=== PATIENT | female | born 1945 | race Caucasian/White ===

== ENCOUNTER 2020-10-19 21:29 | Inpatient (IN) | payer OTHER, MEDICAID, SELFPAY ==
[~2020-10-19] VITALS: Ht 157.5 cm; Wt 66.3 kg
[~2020-10-19 21:29] MED LIST: DITXL5 PO; DOXY100C PO; ESCI10TA PO; GABA-529 PO; LEVO150T8 PO; MELA5TAB12 PO; METO25TA6 PO; PERC10 GT; PRED2.5T4 PO; PRO40 PO; SIMV-43 PO
[2020-10-19 21:36] VITALS: BP_SYST 118
--- NOTE | 2020-10-19 21:36 | NUR ---
Patient to ER bed 7 to gown for evaluation. Side rails up. Report given to MINOR MAC.
--- NOTE | 2020-10-19 21:42 | NUR ---
Patient's code status is FULL CODE paperwork completed and placed in chart.
--- NOTE | 2020-10-19 22:03 | NUR ---
ER Dr. FARIA at bedside examining patient.
[2020-10-19 22:05] LABS: HEMATOCRIT 34.6 % (36-48); HEMOGLOBIN 10.9 g/dL (12.0-16.0); MEAN CORPUSCULAR HEMOGLOBIN 23 pg (27-31); MEAN CORPUSCULAR HGB CONC 31 % (32-36); MEAN CORPUSCULAR VOLUME 72 fL (79.0-98.0); PLATELET COUNT (AUTO) 354 K/uL (130-430); RED BLOOD CELL COUNT(AUTO) 4.82 MIL/uL (4.2-6.2); RED CELL DISTRIBUTION WIDTH 18.2 % (9.0-15.0)
[2020-10-19] MEDS ORDERED: SIME80TA15 PO (22:09)
[2020-10-19] MEDS ORDERED: FEXO180T94 PO (22:09)
[2020-10-19] MEDS ORDERED: MULT-1117 PO (22:09)
[2020-10-19] MEDS ORDERED: SULF1TAB48 PO (22:09)
[2020-10-19] MEDS ORDERED: HYDR-3917 PO (22:09)
[2020-10-19] MEDS ORDERED: FOLI-43 PO (22:09)
[2020-10-19] MEDS ORDERED: POLY17PO4 PO (22:09)
[2020-10-19] MEDS ORDERED: DIF100 PO (22:09)
[2020-10-19] MEDS ORDERED: ONDA4TAB5 PO (22:09)
[2020-10-19] MEDS ORDERED: METH-634 PO (22:09)
[2020-10-19] MEDS ORDERED: MOM PO (22:09)
[2020-10-19] MEDS ORDERED: LOPE2CAP PO (22:09)
[2020-10-19] MEDS ORDERED: BEN50 PO (22:09)
[2020-10-19] MEDS ORDERED: ERGO400T7 PO (22:09)
[2020-10-19] MEDS ORDERED: CALCIUM CARBONATE PO (22:09)
[2020-10-19] MEDS ORDERED: ACET325T PO (22:09)
[2020-10-19] MEDS ORDERED: LOM2.5 PO (22:09)
[2020-10-19] MEDS ORDERED: LEVO125T PO (22:09)
[2020-10-19] MEDS ORDERED: ASCO500T20 PO (22:09)
[2020-10-19] MEDS ORDERED: DITXL5 PO (22:09)
[2020-10-19] MEDS ORDERED: DULCOLAX RC (22:09)
--- NOTE | 2020-10-19 22:09 | NUR ---
Medication reconciliation completed with information provided by [facility]. Any prior medication reconciliation on file was reviewed and corrected.
[2020-10-19 22:10] LABS: WHITE BLOOD COUNT (AUTO) 54.4 K/uL (4.8-10.8)
--- NOTE | 2020-10-19 22:10 | NUR ---
PT BIBA FROM [facility] TO ED C/O ABDOMINAL PAIN, NAUSEA, VOMITING, GENERALIZED WEAKNESS NO OTHER COMPLAINTS NOTED VSS NO S/S OF ACUTE DISTRESS RESTING ON GURNEY RAILS UP
--- NOTE | 2020-10-19 22:15 | NUR ---
# 16 FR Gutierrez catheter with use of sterile technique. Immediate return of 200 cc DARK YELLOW urine noted. Bedside drainage bag placed below level of bladder. Urine sample collected and sent to lab. Pt tolerated procedure WELL. Patient unable to toilet self.
[2020-10-19 22:27] LABS: INR 1.2 (0.8-1.2); PROTHROMBIN TIME 12.3 SECS (9.5-12.5)
[2020-10-19] MEDS ORDERED: CLINDAMYCIN 900 MG in D5W 100 ML IV ONE (22:30)
[2020-10-19] MEDS ORDERED: NACL 0.9% 1,000 ML IV ONE (22:30)
[2020-10-19 22:40] LABS: BAND % (MANUAL) 13 % (0-6); BASOPHILS % (MANUAL) 0 % (0-2); EOSINOPHILS % (MANUAL) 0 % (0-7); LYMPHOCYTES % (MANUAL) 4 % (20-46); MONOCYTES % (MANUAL) 5 % (0-11)
[2020-10-19 22:41] LABS: BILIRUBIN,URINE 1+ (NEGATIVE); BLOOD, URINE 2+ (NEGATIVE); CLARITY/URINE SL CLOUDY (CLEAR); COLOR,URINE YELLOW (YELLOW); GLUCOSE,URINE NEGATIVE (NEGATIVE); KETONES,URINE TRACE (NEGATIVE); LEUKOCYTE ESTERASE ,URINE 2+ (NEGATIVE); NITRITE, URINE NEGATIVE (NEGATIVE); PROTEIN URINE 1+ (NEGATIVE)
[2020-10-19 22:57] LABS: ALANINE AMINOTRANSFERASE 10 U/L (12-78); ALBUMIN 2.3 g/dL (3.4-4.8); ASPARTATE AMINOTRANSFERASE 25 U/L (10-37); CALCIUM 7.2 mg/dL (8.4-11.0); CHLORIDE 98 mmol/L (98-107); GLUCOSE 129 mg/dL (70-99); POTASSIUM 3.8 mmol/L (3.5-5.1); SODIUM SERUM 131 mmol/L (136-145); TOTAL BILIRUBIN 0.4 mg/dL (0.0-1.0); UREA NITROGEN, BLOOD 14 mg/dL (8-21)
[2020-10-19] MEDS ORDERED: CLINDAMYCIN 900 mg/50mL D5W 50 ML IV ONE (23:01)
[2020-10-19 23:10] LABS: ANION GAP 13 (5-15)
[2020-10-19 23:27] LABS: BACTERIA,URINE MANY /HPF (None Seen); FINE GRANULAR CASTS,URINE 0-10 /LPF (None Seen); WBC,URINE 50-80 /HPF (0-3)
[2020-10-19 23:28] LABS: MUCUS,URINE 2+ /LPF (None Seen)
--- NOTE | 2020-10-19 23:35 | NUR ---
Pt to and back from CT Scan, well tolerated, in stable condition
[2020-10-20] VITALS (19 sets, daily range): BP systolic 73–133
--- NOTE | 2020-10-20 00:38 | NUR ---
IVF and IV Antibiotics well tolerated with MAP remaining 65 or higher
--- NOTE | 2020-10-20 01:44 | NUR ---
Provided complete linen change with perineal care, well tolerated
--- NOTE | 2020-10-20 01:55 | NUR ---
Dr. Ann paged to call back Dr. Shetty to discuss possible adm
--- NOTE | 2020-10-20 03:00 | NUR ---
IVF therapy effective AEB B/P holding with MAP at or above 65
--- NOTE | 2020-10-20 03:40 | NUR ---
Received adm orders from Dr. Ann for Tele adm
[2020-10-20] MEDS ORDERED: MORPHINE 2 MG/ML INJ. SYRINGE IVP PRN (03:45)
[2020-10-20] MEDS ORDERED: D5/0.45 NS 1,000 ML IV ONE (03:45)
--- NOTE | 2020-10-20 04:05 | NUR ---
ADMISSION NOTES PATIENT RECEIVED FROM ER FOR SEVERE SEPSIS. PATIENT ORIENTED TO ROOM, CALL LIGHT SYSTEM, BED AND TV REMOTE. BED IN LOWEST LOCKED POSITION. ADMISSION PROCESS INITIATED.
--- NOTE | 2020-10-20 04:20 | NUR ---
Patient will be admitted to care of Dr. Ann. Admitted to Tele unit. Will go to room 103A. Belongings list completed. Complete and up to date summary report printed. SBAR report to be given at bedside with opportunity for questions.
--- NOTE | 2020-10-20 04:20 | NUR ---
Transfer to Tele via ACLS protocol. Licensed nurse present. IV present no signs or symptoms of infiltration.
--- NOTE | 2020-10-20 05:23 | NUR ---
CONSULT REASON FOR CONSULT: ID PERSON I SPOKE WITH: [facility] CONSULTING PHYSICIAN: DR. STOVER [employer] OPERATOR PHONE NUMBER: [phone] ORDERING PHYSICIAN: DR. LINDER
[2020-10-20] MEDS ORDERED: CLINDAMYCIN 900 mg/50mL D5W 50 ML IV SCH (06:00)
[2020-10-20] MEDS ORDERED: CLINDAMYCIN 900 mg/50mL D5W 50 ML IV ONE (06:00)
--- NOTE | 2020-10-20 06:36 | NUR ---
BLOOD SUGAR DR. MYLES NOTIFIED OF PATIENT LOW BLOOD SUGAR RESULTS. NEW ORDER FOR IVF GIVEN NOTED AND CARRIED OUT. Addendum: 10/20/20 at 0637 by Radha Muñiz RN WRONG ENTRY/WRONG PT
--- NOTE | 2020-10-20 06:47 | NUR ---
Nutrition Update Go Scale 14 noted. Pt admitted for Severe Sepsis Diet: Regular BMI: 26.7 kg/m2 RD to follow per nutrition care standards.
--- NOTE | 2020-10-20 07:10 | NUR ---
Received patient complaining of nausea , abdominal discomfort, with low BP, Dr. Ann informed.
[2020-10-20] MEDS: ONDANSETRON HCL 4 MG/2 ML VIAL IVP PRN ×3 (07:11→23:23)
[2020-10-20] MEDS ORDERED: ONDANSETRON HCL 4 MG/2 ML VIAL ONE ×2 (07:12→23:23)
[2020-10-20] MEDS ORDERED: NACL 0.9% 1,000 ML IV ONE (07:15)
--- NOTE | 2020-10-20 07:15 | NUR ---
Zofran given IV push , n/s BOLUS started.
--- NOTE | 2020-10-20 07:50 | NUR ---
Daughter Monika informed regarding patient progress severe sepsis , hypotension , transfer to ICU
--- NOTE | 2020-10-20 10:44 | NUR ---
MD hammond Spoke to Sridevi with exchange to page Dr. Ann regarding HR and BP.
[2020-10-20] MEDS ORDERED: PHENYLEPHRINE HCL 50 MG in NS 245 ML IV PRN (12:30)
[2020-10-20] MEDS: CLINDAMYCIN 900 mg/50mL D5W 50 ML IV SCH ×2 (14:04→22:00)
--- NOTE | 2020-10-20 15:05 | NUR ---
WOUND EVALUATION: Wound Consult received from Dr. Ann. Thank you, Dr. Ann, for the consult. Patient received in a Speed Bed with a mattress, awake, alert, confused. Patient is unable to turn in bed independently. Go Score is a 14. Past Medical History: Gastroesophageal Reflux Disease, Hypertension, Renal Disease, Thyroid Disease, Osteomyelitis Left Hip, Rheumatoid Arthritis, SLE, Neuropathy, Hyperlipidemia, Major Depressive Disorder, Myocardial Infarction, Coronary Bypass Surgery, Cardiac Valve. Recent Labs: WBC 54.4, RBC 4.82, hemoglobin 10.9, hematocrit 34.6, sodium 131, BUN 14, creatinine 0.90, glucose 129, POC glucose 144, lactic acid 2.1, calcium 7.2, ALT 10, albumin 2.3. Microbiology: Blood culture results x2 in progress. MRSA screen results in progress. Urine culture results in progress. Intrinsic factors that delay wound healing: Renal Disease, Neuropathy, Osteomyelitis. Extrinsic factors that delay wound healing: Decreased mobility. Wound Assessment: 1. Left Lateral Hip: Chronic surgical incision that is dehisced. Wound bed has 100% red tissue. No odor, scant sanguineous drainage. Periwound intact. Wound measures 0.3 cm x 0.4 cm x 0.2 cm. Recommend: Cleanse wound with normal saline. Apply SurePrep to ajyant-wound. Apply Hydrogel to wound bed. Cover with foam dressing. Perform wound care daily, and as needed for dressing soiling or dislodgement. 2. Left Lateral Hip, inferior to site 1: Chronic surgical incision that is dehisced. Wound bed has 100% dark red tissue. No odor, scant sanguineous drainage. Periwound intact. Wound measures 1.1 cm x 0.7 cm x 0.7 cm. Recommend: Cleanse wound with normal saline. Apply SurePrep to jayant-wound. Apply Hydrogel to wound bed. Loosely pack wound with 1/4 inch iodoform packing strip. Cover with same foam dressing as in Site 1. Perform wound care daily, and as needed for dressing soiling or dislodgement. 3. Left Lateral Hip, inferior to site 2: Chronic surgical incision that is dehisced. Wound bed has 100% yellow tissue. No odor, no drainage. Periwound intact. Wound measures 2.0 cm x 0.4 cm x 0.2 cm. Recommend: Cleanse wound with normal saline. Apply SurePrep to jayant-wound. Apply Hydrogel to wound bed. Cover with same foam dressing as in Site 1. Perform wound care daily, and as needed for dressing soiling or dislodgement. Also recommend: Encourage and assist patient as needed with repositioning every 2 hours with pillow support and off-load pressure areas with pillows for pressure re-distribution. Offload, elevate and float bilateral heels with pillows. Perform skin care and monitor skin integrity Q shift. Use moisture barrier cream on buttocks and other moisture susceptible areas QID and as needed for soiling. Initiate low air-loss therapy. Addendum: 10/21/20 at 0724 by Flaquito Tatum RN Error: Site two should have plain packing strip soaked in saline.
[2020-10-20] MEDS: MORPHINE 2 MG/ML INJ. SYRINGE IVP PRN (17:11)
--- NOTE | 2020-10-20 19:25 | NUR ---
OPENING NOTE Received SBAR report from off coming RN for continuity of care. Pt laying in bed with eyes closed and on RA. Pt tachypnic and tachycardic, HR 150s. Neosynephrine gtt infusing @ 2.1 mcg/kg/min. Call light within reach, bed locked and in lowest position, safety precautions in place.
--- NOTE | 2020-10-20 20:30 | NUR ---
Pt laying in bed with eyes closed. Pt opens eyes at times but does not verbally respond. Pt withdraws to tactile stimuli. Pt on RA with oxygen saturations maintained above 90%. Pt is tachypneic with RR 20's-30's. Pt tachycardic with HR in 140's-150's. Pt afebrile. Neosynephrine gtt infusing @ 2.22 mcg/kg/min. Gutierrez catheter in place, no urine output noted. Bed locked and in lowest position, safety precautions in place.
[2020-10-20] MEDS: NOREPINEPHRINE BITARTRATE 4 MG in NS 246 ML IV PRN ×2 (21:00→22:30)
--- NOTE | 2020-10-20 21:00 | NUR ---
Levophed gtt initiated @ 0.1 mcg/kg/min per protocol d/t low BPs.
--- NOTE | 2020-10-20 22:28 | NUR ---
Pt continues to be tachycardic with HR 140's-150's, Sinus tachy. Dr. Neves will be paged to inform of HR.
--- NOTE | 2020-10-20 22:31 | NUR ---
PAGED FOR ORDERS DIALED: [phone] SPOKE TO: GILBERTO
--- NOTE | 2020-10-20 22:35 | NUR ---
Dr. Ann called to inform of pt's condition. made aware of tachycardia and need for central line d/t limited PIV access. New orders received.
--- NOTE | 2020-10-20 22:41 | NUR ---
Called daughter Monika for update on pt's condition. Obtained telephone consent for central line placement. Mimi Frank agreed.
--- NOTE | 2020-10-20 23:05 | NUR ---
Dr. Shetty at bedside to insert central line. Time out performed.
[2020-10-20] MEDS ORDERED: fentaNYL CITRATE/PF 100 MCG/2 ML AMP ONE (23:23)
[2020-10-21] VITALS: BP_SYST 111
[2020-10-21] MEDS ORDERED: fentaNYL CITRATE/PF 100 MCG/2 ML AMP IVP ONE
--- NOTE | 2020-10-21 00:05 | NUR ---
Dr. Lim at the bedside assessing pt, plan of care discussed. New orders obtained.
[2020-10-21] MEDS ORDERED: NOREPINEPHRINE 4 MG/4 ML VIAL IV ONE ×3 (00:28→03:49)
[2020-10-21] MEDS: MORPHINE 2 MG/ML INJ. SYRINGE IVP PRN (00:43)
[2020-10-21 01:00] VITALS: BP_SYST 120
[2020-10-21] MEDS ORDERED: ALBUMIN HUMAN 25% 100 ML IV ONE ×2 (01:15→01:57)
[2020-10-21] MEDS ORDERED: MEROPENEM 500 MG in NS 50 ML IV SCH (01:15)
[2020-10-21] MEDS ORDERED: LINEZOLID 300 ML IV SCH (01:15)
[2020-10-21] MEDS ORDERED: NACL 0.9% 1,000 ML IV SCH (01:15)
[2020-10-21] MEDS: NOREPINEPHRINE BITARTRATE 4 MG in NS 246 ML IV PRN ×2 (01:37→03:28)
[2020-10-21 02:00] VITALS: BP_SYST 98
--- NOTE | 2020-10-21 02:00 | NUR ---
Pt's oxygen saturations dropping to 80's. Applied nasal canula at 3 L of O2 to maintain O2 saturations above 90%. Pt remains tachypnic with RR 20's-30's.
[2020-10-21] MEDS ORDERED: MEROPENEM 500 MG VIAL IV ONE (02:06)
[2020-10-21 03:00] VITALS: BP_SYST 98
[2020-10-21] MEDS ORDERED: NOREPINEPHRINE BITARTRATE 8 MG in NS 246 ML IV PRN (03:30)
[2020-10-21 04:00] VITALS: BP_SYST 92
[2020-10-21 05:00] VITALS: BP_SYST 82
--- NOTE | 2020-10-21 05:05 | NUR ---
Pt's oxygen saturation dropping to low 80's, increased O2 to 5L via NC. Pt continues to be tachypnic in 20's-30's. Neosynephrine gtt maxed at 3 mcg/kg/min, Levophed ftt infusing @ 0.7 mcg/kg/min. Pt's HR still tachy but now 120's 115s.
--- NOTE | 2020-10-21 05:09 | NUR ---
PAGED FOR CONSULT ORDERING PHYSICIAN: DR. STOVER REASON FOR CONSULT: JAMES DIALED: [phone] SPOKE TO: CELINE
--- NOTE | 2020-10-21 05:14 | NUR ---
Pt's HR began to dmitry to 30's then went into asystole. No pulse felt, pt unresponsive. Code blue and CPR initiated.
--- NOTE | 2020-10-21 05:18 | NUR ---
Pt intubated by ER doctor. CPR continues.
[2020-10-21 05:22] LABS: BASOPHILS # (AUTO) 0.3 K/uL (0.0-0.2); BASOPHILS % (AUTO) 0.3 % (0.0-2.0); EOSINOPHILS # (AUTO) 0.9 K/uL (0.0-0.4); EOSINOPHILS % (AUTO) 0.7 % (0.0-4.0); HEMATOCRIT 37.9 % (36-48); HEMOGLOBIN 10.3 g/dL (12.0-16.0); LYMPHOCYTES # (AUTO) 4.1 K/uL (1.0-5.5); LYMPHOCYTES % (AUTO) 3.5 % (20.5-51.5); MEAN CORPUSCULAR HEMOGLOBIN 22 pg (27-31); MEAN CORPUSCULAR HGB CONC 27 % (32-36); MEAN CORPUSCULAR VOLUME 81 fL (79.0-98.0); MONOCYTES # (AUTO) 2.1 K/uL (0.0-1.0); MONOCYTES % (AUTO) 1.9 % (1.7-9.3); NEUTROPHILS # (AUTO) 107.1 K/uL (1.8-7.7); NEUTROPHILS % (AUTO) 93.6 % (40.0-70.0); PLATELET COUNT (AUTO) 111 K/uL (130-430); RED BLOOD CELL COUNT(AUTO) 4.69 MIL/uL (4.2-6.2); RED CELL DISTRIBUTION WIDTH 18.8 % (9.0-15.0)
--- NOTE | 2020-10-21 05:22 | NUR ---
Pt pronounced at 0522 by ER doctorStevie. Pt unresponsive, no pulse felt, no respirations, no lung sounds, no heart sounds.
[2020-10-21 05:24] LABS: WHITE BLOOD COUNT (AUTO) 114.5 K/uL (4.8-10.8)
[2020-10-21 05:30] LABS: ALANINE AMINOTRANSFERASE 17 U/L (12-78); ALBUMIN 1.5 g/dL (3.4-4.8); ANION GAP 19 (5-15); ASPARTATE AMINOTRANSFERASE 63 U/L (10-37); CHLORIDE 107 mmol/L (98-107); CREATININE 2.44 mg/dL (0.55-1.30); GLUCOSE 170 mg/dL (70-99); PHOSPHORUS 8.5 mg/dL (2.7-4.5); SODIUM SERUM 135 mmol/L (136-145); TOTAL BILIRUBIN 0.3 mg/dL (0.0-1.0); UREA NITROGEN, BLOOD 28 mg/dL (8-21)
[2020-10-21 05:35] LABS: POTASSIUM 6.2 mmol/L (3.5-5.1)
--- NOTE | 2020-10-21 05:35 | NUR ---
Called daughter Monika to inform of pt expiring.
[2020-10-21 05:36] LABS: CALCIUM 5.6 mg/dL (8.4-11.0)
--- NOTE | 2020-10-21 05:36 | NUR ---
NOTIFIED OF PT EXPIRATION -SPOKE TO: LORI PEARSON -NITIN JARRELL -SPOKE TO: MEDARDO RODRIGUEZ -SPOKE TO: CELINE
--- NOTE | 2020-10-21 05:45 | NUR ---
[facility] called, spoke with Demarco, no case number was assigned. Addendum: 10/21/20 at 0824 by Mya Churchill RN Wrong name. [facility] called, spoke with Myrna, no case number was assigned.
--- NOTE | 2020-10-21 05:51 | NUR ---
[employer] [facility] called, not a [employer] case, body released to family/mortuary.
--- NOTE | 2020-10-21 06:15 | NUR ---
Postmortem care provided.
--- NOTE | 2020-10-21 10:00 | NUR ---
family came and seen patient. belongings took home by RADHA (daughter). [facility] . stated family need to call to them about specify the location. tried 3 x to contact daughter( RADHA) not answering call, left message. informed production shift supervisor ALON. Addendum: 10/21/20 at 1343 by Marco Spangler RN BODY SENT TO BODY HOLD.
[2020-10-21] MEDS ORDERED: LEVOFLOXACIN IN DEXTROSE 5 % 100 ML IV SCH (21:00)
== END 2020-10-21 05:22 | DRG 871 ==
LOC: SED 21:29 → STU 10-20 03:34 → SIC 10-20 07:42
PROVIDERS: ADMIT Internal Medicine; ATTEND Internal Medicine
PROC: 02HV33Z Insertion of Infusion Device into Superior Vena Cava, Percutaneous Approach (ICD-10-PCS; principal; 2020-10-20)
PROC: 0BH17EZ Insertion of Endotracheal Airway into Trachea, Via Natural or Artificial Opening (ICD-10-PCS; 2020-10-20)
DX: A41.9 Sepsis, unspecified organism (principal); G92 Toxic encephalopathy; N17.0 Acute kidney failure with tubular necrosis; R65.21 Severe sepsis with septic shock; E43 Unspecified severe protein-calorie malnutrition; N39.0 Urinary tract infection, site not specified; N12 Tubulo-interstitial nephritis, not specified as acute or chronic; M86.8X8 Other osteomyelitis, other site; K51.00 Ulcerative (chronic) pancolitis without complications; R64 Cachexia; Z96.653 Presence of artificial knee joint, bilateral; Z96.643 Presence of artificial hip joint, bilateral; K21.9 Gastro-esophageal reflux disease without esophagitis; E03.9 Hypothyroidism, unspecified; M06.9 Rheumatoid arthritis, unspecified; G62.9 Polyneuropathy, unspecified; M32.9 Systemic lupus erythematosus, unspecified; I10 Essential (primary) hypertension; E78.5 Hyperlipidemia, unspecified; Z20.822 Contact with and (suspected) exposure to COVID-19; Z88.1 Allergy status to other antibiotic agents; Z88.8 Allergy status to other drugs, medicaments and biological substances; Z79.899 Other long term (current) drug therapy; Z95.2 Presence of prosthetic heart valve; Z85.850 Personal history of malignant neoplasm of thyroid; Z95.1 Presence of aortocoronary bypass graft; Z68.26 Body mass index [BMI] 26.0-26.9, adult; Z79.1 Long term (current) use of non-steroidal anti-inflammatories (NSAID)
CPT/HCPCS: 36415; 71045; 76376; 80053; 81000; 82962; 83605; 83735; 84100; 84484; 85007; 85025; 85027; 85610-TC; 85730-TC; 87040-TC; 87081; 87086; 93005; 96365; 96366; 99291; J1956; J2020; J2185; J2270; J2370; J2405; J3010; J3490; J7050; P9046